=== PATIENT | female | born 2000 | race Caucasian/White ===

== ENCOUNTER 2024-01-17 20:50 | Emergency (ER) | payer SELFPAY ==
[2024-01-17] VITALS (15 sets, daily range): BP systolic 102–130; BP diastolic 75–87; PULSE 14–126; RESP 14–28; TEMP 36.7; O2SAT 94–100
--- NOTE | ~2024-01-17 | XR_ITS ---
EXAMINATION: XR chest 1V portable DATE: 01/17/2024 21:15 INDICATION: Shortness of breath. TECHNIQUE: A single frontal view of the chest was obtained. COMPARISON: None. FINDINGS: There is no pneumonia, pleural effusion, or pneumothorax. The heart size is normal. IMPRESSION: 1. No acute cardiopulmonary disease. Reviewed, dictated and finalized at location E.
--- NOTE | 2024-01-17 20:52 | ECG_ITS ---
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 Measurements Intervals [place] Rate: 87 P: 18 IA: 155 QRS: 47 QRSD: 90 T: 20 QT: 347 QTc: 419 Interpretive Statements SINUS RHYTHM WITH SINUS ARRHYTHMIA No previous ECG available for comparison Electronically Signed On 01-18-2024 12:06:33 CDT by Angela Tran M.D.
[2024-01-17 21:05] LABS: Basophils Percent Auto 0.4 % (0.2-1.2); Eosinophils Absolute Auto 0.1 K/mm3 (0-0.3); Eosinophils Percent Auto 0.8 % (0-4.4); Hematocrit 41.9 % (37.0-47.0); Hemoglobin 12.9 g/dL (12.0-15.0); Immature Granulocyte Absolute 0.05 K/mm3 (0.00-0.031); Immature Granulocyte Percent A 0.5 % (0-0.5); Lymphocytes Absolute Auto 2.38 K/mm3 (0.9-3.2); Lymphocytes Percent Auto 21.6 % (18.3-44.2); Mean Corpuscular HGB Conc 30.8 g/dl (32-36); Mean Corpuscular Hemoglobin 24.6 pg (26-34); Mean Platelet Volume 11.3 fl (7.4-10.4); Monocytes Absolute Auto 0.8 K/mm3 (0.1-0.6); Monocytes Percent Auto 7.4 % (2.6-8.5); Neutrophils Absolute Auto 7.7 K/mm3 (1.3-6.7); Neutrophils Percent Auto 69.3 % (45.5-73.1); Platelet Count Result 359 k/mm3 (150-375); Red Blood Count 5.24 M/mm3 (4.2-5.4); Red Cell Distribution Width 15.4 % (11.5-14.5)
[2024-01-17] MEDS: SODIUM CHLORIDE 0.9% IV 1,000 ML 999 ML IV CONT (21:15)
[2024-01-17] MEDS: methylPREDNISolone SOD SUCC 125 MG VIAL IV PUSH (21:15)
[2024-01-17] MEDS: PROCHLORPERAZINE EDISYLATE 10 MG/2 ML VIAL IV PUSH (21:15)
[2024-01-17] MEDS: KETOROLAC 30 MG/ML VIAL (*BKC) IV PUSH (21:16)
[2024-01-17] MEDS: diphenhydrAMINE HCl INJ 50 MG/ML VIAL 25 MG IV PUSH (21:16)
[2024-01-17 21:17] LABS: Alanine Aminotransferase 34 U/L (6-35); Albumin Level 4.6 g/dL (3.5-5.1); Alkaline Phosphatase 89 U/L (38-126); Anion Gap 8 mmol/L (4-12); Aspartate Amino Transferase 31 U/L (14-36); Bilirubin,Total 0.4 mg/dL (0.2-1.3); Blood Urea Nitrogen 11 mg/dL (7-17); Carbon Dioxide 29 mmol/L (22-30); Chloride 104 mmol/L (98-107); Estimated CRCL calculation 117 ml/min; Estimated Glomerular Filt Rate > 60; Glucose 91 mg/dL (65-110); Potassium 3.6 mmol/L (3.4-5.0); Sodium 141 mmol/L (137-145)
[2024-01-17 21:28] LABS: D Dimer < 0.27 ug/mL (<0.48)
[2024-01-17 21:34] LABS: Lactic Acid Reflex 1.1 mmol/L (0.7-2.0)
[2024-01-17] MEDS: IPRATROPIUM 0.5 MG/ALBUTEROL SULFATE 2.5 MG AMPUL.NEB 3 ML INHALATION (21:35)
[2024-01-17 21:55] LABS: NT Pro B Type Natriuretic Pept < 20 pg/mL (19.9-100); Troponin I < 0.012 ng/mL (0.000-0.034)
--- NOTE | 2024-01-17 22:02 | PC.NURSE ---
Patient calls out to state she feels better and is ready to go home. ERP notified.
--- NOTE | 2024-01-17 22:28 | ED.GENADULT ---
HPI - General Adult General Chief complaint: Shortness of Breath/Dyspnea Stated complaint: shortness of breath Time Seen by Provider: 01/17/24 20:56 History of Present Illness HPI narrative: patient is a 23-year-old female presents emergency department chief complaint of shortness of breath chest pain and headache. The patient states around 7:30 p.m. she started having a sharp type pain in her chest reports that hurts whenever she takes a deep breath and reports he felt short of breath. Patient also reports that she had headache that developed as similar to when she has had a migraine in past. Patient reports that pain is not improved by anything and reports he also felt nauseated. Patient denies focal neurological deficit Related Data Allergies Allergy/AdvReac Type Severity Reaction Status Date / Time No Known Allergies Allergy Verified 01/17/24 21:09 Review of Systems Review of Systems: A 10 system review of systems was completed on the patient and is negative except for what is stated in the HPI. Nursing and ancillary documentation was reviewed. Exam Narrative: GENERAL: Well-appearing, well-nourished, and in no acute distress. HEAD: Normocephalic, atraumatic. EYES: PERRLA and EOMI. ENT: Nares clear, no rhinorrhea or epistaxis. Mucous membranes moist. NECK: Supple. CHEST: Clear to auscultation. No respiratory distress. chest wall is tender to palpation along the sternal border on both sides HEART: Regular rate and rhythm. No murmur heard. Normal peripheral pulses. ABDOMEN: Soft, nontender, nondistended, normal active bowel sounds. EXTREMITIES: Normal range of motion. No edema. SKIN: Warm, dry, no rash. NEURO: No focal deficits. Alert and oriented x3. PSYCH: Normal mood and affect. Course Vital Signs Vital signs: Vital Signs Temperature 36.7 C 01/17/24 20:56 Pulse Rate 81 01/17/24 20:56 Respiratory Rate 17 01/17/24 20:56 Blood Pressure 124/81 01/17/24 20:56 Pulse Oximetry 100 01/17/24 20:56 Oxygen Delivery Room Air 01/17/24 20:56 Temperature 36.7 C 01/17/24 20:56 Pulse Rate 106 H 01/17/24 21:46 Respiratory Rate 21 H 01/17/24 21:46 Blood Pressure 124/81 01/17/24 20:56 Pulse Oximetry 100 01/17/24 21:07 Oxygen Delivery Room Air 01/17/24 21:07 Medical Decision Making MDM Narrative Medical decision making narrative: differential diagnosis includes migraine headache, ACS, chest wall pain, pleuritic pain, pulmonary embolism the patient is low risk as she is not tachycardic not hypoxic and not tachypneic. D-dimer was obtained that was negative EKG showed no acute ischemic changes laboratory studies were obtained that showed a white count 11.0 electrolytes are within normal limits troponin was negative BNP was negative chest x-ray showed no evidence of pneumothorax no evidence of wide mediastinum no evidence of pneumonia patient was treated with Toradol steroids antiemetic and Benadryl as well as fluids. The patient's pain was improved patient's headache has been improved and patient is currently feeling much better at this time. Vital Signs Vital Signs: Vital Signs Temperature 36.7 C 01/17/24 20:56 Pulse Rate 81 01/17/24 20:56 Respiratory Rate 17 01/17/24 20:56 Blood Pressure 124/81 01/17/24 20:56 Pulse Oximetry 100 01/17/24 20:56 Oxygen Delivery Room Air 01/17/24 20:56 Temperature 36.7 C 01/17/24 20:56 Pulse Rate 106 H 01/17/24 21:46 Respiratory Rate 21 H 01/17/24 21:46 Blood Pressure 124/81 01/17/24 20:56 Pulse Oximetry 100 01/17/24 21:07 Oxygen Delivery Room Air 01/17/24 21:07 Lab Data 01/17/24 21:01 01/17/24 21:01 Labs: Lab Results 01/17/24 01/17/24 01/17/24 Range/Units 21:00 21:01 21:16 WBC 11.0 H (4.5-10.0) K/mm3 RBC 5.24 (4.2-5.4) M/mm3 Hgb 12.9 (12.0-15.0) g/dL Hct 41.9 (37.0-47.0) % MCV 80.0 (80-100) fl MCH 24.6
== END 2024-01-17 22:40 | disposition home or self-care (01) ==
PROVIDERS: Emergency Provider Emergency Medicine
DX: R51.9 Headache, unspecified (principal); R07.89 Other chest pain
CPT/HCPCS: 36415; 71045; 80053; 83605; 83880; 84484; 85025; 85380; 93005; 94640; 96361; 96374; 96375; 99284; J0780; J1200; J1885; J2919; J7030

== ENCOUNTER 2024-03-19 17:30 | Emergency (ER) | payer SELFPAY ==
--- NOTE | ~2024-03-19 | CT_ITS ---
EXAMINATION: CTA chest PE abdomen pel DATE: 03/19/2024 23:57 INDICATION: Left flank pain, chest pain TECHNIQUE: Computed tomography (CT) pulmonary angiogram of the chest was performed with 100 mL Omnipa que-350 intravenous contrast. Additional 3D reconstructions utilizing coronal maximum intensity proje ction (MIP) were performed. CT of the abdomen and pelvis was performed with intravenous contrast util izing the same contrast bolus following a short delay. Automated exposure control and iterative recon struction technique were employed. The dose-length product was 1401.29 mGy-cm. COMPARISON: None FINDINGS: Chest: No pulmonary embolism. No pneumonia, pulmonary edema, pleural effusion or pneumothorax. Heart size is normal. No pericardial effusion. Thoracic aorta is normal in caliber with no dissection. No patholog ically enlarged thoracic lymphadenopathy. Bones are unremarkable. Abdomen/pelvis: Liver, gallbladder, spleen, pancreas, bilateral adrenal glands and kidneys are normal. Normal variant retroaortic left renal veins. Bowels including the appendix are normal. Bladder, anteverted uterus a nd bilateral adnexa are normal. No free intraperitoneal gas or fluid. No pathologically enlarged abdo kate or pelvic lymphadenopathy. Bones are unremarkable. IMPRESSION: 1. No pulmonary embolism or other acute cardiopulmonary disease. 2. No acute intra-abdominal/pelvic process. Reviewed, dictated and finalized at location A.
[2024-03-19 18:09] VITALS: BP 120/75; PULSE 97; RESP 18; TEMP 36.7; O2SAT 100
--- NOTE | 2024-03-19 18:25 | ED.GENADULT ---
HPI - General Adult General Chief complaint: Back Pain/Injury <Bryce Sanon APRN - Last Filed: 03/19/24 18:26> Stated complaint: Left Flank/ Back Pain <Bryce Sanon APRN - Last Filed: 03/19/24 18:26> Time Seen by Provider: 03/19/24 18:25 <Bryce Sanon APRN - Last Filed: 03/19/24 18:26> patient presents with left flank pain since yesterday. patient states it wraps to her left abdomen. patient denies hx of kidney stones or urinary symptoms. no other complaints. PE: A&OX3, BS non-labor, + left CVA tenderness, no abdominal tenderness <Bryce Sanon APRN - Last Filed: 03/19/24 18:26> History of Present Illness HPI narrative: patient 23-year-old female who presents emergency department with chief complaint of flank and chest pain. The patient reports that since yesterday she has been having pain in the left flank area reports radiates around to her left abdomen reports now he is up in her chest patient states the pain has gotten worse and now is and 9.75/10 patient reports that the pain is not improved by anything reports it is worsened by inspiration and movement. <Gerardo Hernandez MD - Last Filed: 03/20/24 02:24> Related Data Allergies/adverse reactions: Allergies Allergy/AdvReac Type Severity Reaction Status Date / Time No Known Allergies Allergy Verified 03/19/24 18:11 <Bryce Sanon APRN - Last Filed: 03/19/24 18:26> Review of Systems Review of Systems: A 10 system review of systems was completed on the patient and is negative except for what is stated in the HPI. Nursing and ancillary documentation was reviewed. <Gerardo Hernandez MD - Last Filed: 03/20/24 02:24> Exam Narrative: GENERAL: Well-appearing, well-nourished, and in no acute distress. HEAD: Normocephalic, atraumatic. EYES: PERRLA and EOMI. ENT: Nares clear, no rhinorrhea or epistaxis. Mucous membranes moist. NECK: Supple. CHEST: Clear to auscultation. No respiratory distress. Chest wall is tender to palpation in the left sternal border HEART: Regular rate and rhythm. No murmur heard. Normal peripheral pulses. ABDOMEN: Soft, nontender, nondistended, normal active bowel sounds. EXTREMITIES: Normal range of motion. No edema. SKIN: Warm, dry, no rash. NEURO: No focal deficits. Alert and oriented x3. PSYCH: Normal mood and affect. <Gerardo Hernandez MD - Last Filed: 03/20/24 02:24> Course Vital Signs Vital signs: Vital Signs Temperature 36.7 C 03/19/24 18:09 Pulse Rate 97 03/19/24 18:09 Respiratory Rate 18 03/19/24 18:09 Blood Pressure 120/75 03/19/24 18:09 Pulse Oximetry 100 03/19/24 18:09 Oxygen Delivery Room Air 03/19/24 18:09 Temperature 36.8 C 03/19/24 21:43 Pulse Rate 93 03/19/24 21:43 Respiratory Rate 18 03/19/24 21:43 Blood Pressure 133/84 03/19/24 21:43 Pulse Oximetry 100 03/19/24 21:43 Oxygen Delivery Room Air 03/19/24 18:09 <Bryce Sanon APRN - Last Filed: 03/19/24 18:26> Vital Signs Temperature 36.7 C 03/19/24 18:09 Pulse Rate 97 03/19/24 18:09 Respiratory Rate 18 03/19/24 18:09 Blood Pressure 120/75 03/19/24 18:09 Pulse Oximetry 100 03/19/24 18:09 Oxygen Delivery Room Air 03/19/24 18:09 Temperature 36.8 C 03/19/24 21:43 Pulse Rate 93 03/19/24 21:43 Respiratory Rate 18 03/19/24 21:43 Blood Pressure 133/84 03/19/24 21:43 Pulse Oximetry 100 03/19/24 21:43 Oxygen Delivery Room Air 03/19/24 18:09 <Gerardo Hernandez MD - Last Filed: 03/20/24 02:24> Medical Decision Making MDM Narrative Medical decision making narrative: differential diagnosis include intra-abdominal infection, pulmonary embolism, ACS, pneumothorax laboratory studies were obtained the patient showed a CBC with white count of 15.2 electrolytes are within normal limits troponin was 0 hour in 3 hour urinalysis showed no evidence UTI test was negative CT
[2024-03-19 21:43] VITALS: BP 133/84; PULSE 93; RESP 18; TEMP 36.8; O2SAT 100
[2024-03-19 23:04] LABS: Basophils Absolute Auto 0.1 K/mm3 (0.0-0.1); Basophils Percent Auto 0.3 % (0.2-1.2); Eosinophils Absolute Auto 0.1 K/mm3 (0-0.3); Eosinophils Percent Auto 0.6 % (0-4.4); Hemoglobin 12.7 g/dL (12.0-15.0); Immature Granulocyte Absolute 0.05 K/mm3 (0.00-0.031); Immature Granulocyte Percent A 0.3 % (0-0.5); Lymphocytes Absolute Auto 2.94 K/mm3 (0.9-3.2); Lymphocytes Percent Auto 19.3 % (18.3-44.2); Mean Corpuscular Volume 80.7 fl (80-100); Mean Platelet Volume 11.6 fl (7.4-10.4); Monocytes Absolute Auto 0.9 K/mm3 (0.1-0.6); Neutrophils Absolute Auto 11.2 K/mm3 (1.3-6.7); Neutrophils Percent Auto 73.5 % (45.5-73.1); Platelet Count Result 318 k/mm3 (150-375); Red Blood Count 5.08 M/mm3 (4.2-5.4); Red Cell Distribution Width 15.4 % (11.5-14.5); White Blood Count 15.2 K/mm3 (4.5-10.0)
[2024-03-19 23:09] LABS: Pregnancy On Board Control Positive; Urine Pregnancy Test Negative
[2024-03-19 23:10] LABS: Add Urine Microscopic? YES; Appearance Urine Clear (Clear); Bacteria Urine Rare /hpf; Bilirubin Urine Negative (Negative); Blood Urine 2+ (Negative); Color Urine Yellow (Yellow); Glucose Urine UA Negative (Negative); Ketones Urine Negative (Negative); Leukocyte Esterase Ur Negative LEU/UL (Negative); Nitrate Urine Negative (Negative); Non Pathogenic Casts 0-2; Protein Urine Negative (Negative); RBC Urine 0-2 /hpf (0-2); Specific Grav Ur 1.024 (1.001-1.035); Squamous Epithelial Cell Urine Occasional /hpf (Few); Urobilinogen Urine 0.2 mg/dL (<2.0); WBC Urine 0-5 /hpf (0-3)
[2024-03-19 23:16] LABS: Alanine Aminotransferase 30 U/L (6-35); Albumin Level 4.4 g/dL (3.5-5.1); Alkaline Phosphatase 79 U/L (38-126); Anion Gap 12 mmol/L (4-12); Aspartate Amino Transferase 25 U/L (14-36); Bilirubin,Total 0.5 mg/dL (0.2-1.3); Blood Urea Nitrogen 11 mg/dL (7-17); Calcium 8.9 mg/dL (8.4-10.2); Carbon Dioxide 25 mmol/L (22-30); Chloride 102 mmol/L (98-107); Estimated CRCL calculation 141 ml/min; Estimated Glomerular Filt Rate > 60; Glucose 85 mg/dL (65-110); Potassium 3.5 mmol/L (3.4-5.0); Sodium 139 mmol/L (137-145)
[2024-03-19] MEDS: SODIUM CHLORIDE 0.9% IV 1,000 ML 999 ML IV CONT (23:45)
[2024-03-19] MEDS: ONDANSETRON INJ 4 MG/2 ML VIAL IV PUSH (23:46)
[2024-03-19] MEDS: MORPHINE SULFATE (*CRX) 4 MG/ML INJ IV PUSH (23:46)
[2024-03-20 01:56] LABS: Troponin I < 0.012 ng/mL (0.000-0.034)
[2024-03-20 01:57] LABS: Troponin I < 0.012 ng/mL (0.000-0.034)
[2024-03-20 03:52] VITALS: BP 92/62; PULSE 76; RESP 19; O2SAT 98
== END 2024-03-20 03:53 | disposition home or self-care (01) ==
PROVIDERS: Nurse Practitioner Family; Emergency Provider Emergency Medicine
DX: R07.9 Chest pain, unspecified (principal); R10.12 Left upper quadrant pain
CPT/HCPCS: 36415; 71275; 74177; 80053; 81001; 81025; 84484; 85025; 96361; 96374; 96375; 99284; J2270; J2405; J7030; Q9967

== ENCOUNTER 2024-03-21 18:03 | Emergency (ER) | payer SELFPAY ==
--- NOTE | ~2024-03-21 | XR_ITS ---
XR chest 2V DATE: 03/21/2024 21:31 INDICATION: Chest pain, dizziness, nausea TECHNIQUE: PA and lateral views COMPARISON: 03/19/2024 CTA chest abdomen pelvis FINDINGS: Normal heart size. No hilar or mediastinal enlargement. No pulmonary infiltrate or consolid ation, pleural effusion or pulmonary vascular congestion or pneumothorax is detected. Included skeletal structures are unremarkable. IMPRESSION: Negative Reviewed, dictated and finalized at location J. IMPRESSION: Negative
--- NOTE | ~2024-03-21 | CT_ITS ---
CT of the Abdomen and Pelvis: Indication: Abdominal pain Technique: 2.5 mm axial scans were obtained through the abdomen and pelvis following intravenous adm inistration of 100 cc of Omnipaque 350. Dose reduction technique was used on this scan by utilizing a utomated exposure control and iterative reconstruction technique. The dose-length product (DLP) was 1 127.25 mGy-cm. COMPARISON: 03/19/2024 Findings: Scans through the lung bases are unremarkable. The liver, spleen, pancreas, gallbladder, adrenals and kidneys are within normal limits. No evidence of aortic aneurysm. No lymphadenopathy. No bowel obstruction or bowel wall thickening. There is no evidence to suggest acute appendicitis. Images through the pelvis were performed. Urinary bladder unremarkable. No pelvic mass seen. No ascit es. Impression: No significant abnormalities seen. Reviewed, dictated and finalized at [facility]. Impression: No significant abnormalities seen.
[2024-03-21 18:03] VITALS: BP 135/73; PULSE 92; RESP 20; TEMP 36.9; O2SAT 99
[2024-03-21 19:59] VITALS: TEMP 37.2
--- NOTE | 2024-03-21 21:16 | ECG_ITS ---
Test Date: 2024-03-21 21:57:54 Measurements Intervals [place] Rate: 67 P: 11 AR: 130 QRS: 50 QRSD: 93 T: 36 QT: 396 QTc: 420 Interpretive Statements SINUS RHYTHM NORMAL ELECTROCARDIOGRAM Compared to ECG 01/17/2024 21:05:27 Sinus arrhythmia no longer present Electronically Signed On 03-22-2024 15:32:21 CDT by Preston Childs M.D.
--- NOTE | 2024-03-21 21:19 | ED.ABDPAIN ---
HPI - Abdominal Pain General Chief Complaint: Abdominal Pain Stated Complaint: abdominal pain Time Seen by Provider: 03/21/24 20:49 Source: patient Mode of arrival: ambulatory Limitations: no limitations History of Present Illness HPI narrative: This is a 23-year-old female that presents to the emergency department for abdominal pain. Reports sharp, left-sided abdominal pain with nausea. It has been fairly constant over the last couple of days. She is evaluated in the ER for this 2 days ago without a certain cause found. She has had worsening pain which prompted her to be seen again. The pain is on the left side of her abdomen and also in her lower abdomen. The pain radiates to her back. She also has had some intermittent chest pressure. Denies fever, cough, shortness of breath, vomiting, diarrhea, dysuria or hematuria. Related Data Allergies Allergy/AdvReac Type Severity Reaction Status Date / Time No Known Allergies Allergy Verified 03/19/24 18:11 Review of Systems Review of Systems: CONSTITUTIONAL: Denies fever CARDIOVASCULAR: Reports chest pain RESPIRATORY: Denies dyspnea. GASTROINTESTINAL: Reports abdominal pain, nausea. Denies vomiting, or diarrhea. GENITOURINARY: Denies dysuria or hematuria. All systems reviewed & are unremarkable except as noted in HPI and below PMFSH Past Medical History Medical History (Updated 03/22/24 @ 01:58 by Edna Merrill PA-C) History of anxiety History of depression Social History Social History (Updated 03/21/24 @ 21:22 by Edna Merrill PA-C) Smoking status: Never smoker Exam Narrative: GENERAL: Well-appearing, well-nourished, and in no acute distress. HEAD: Normocephalic, atraumatic. EYES: EOMI. CHEST: Clear to auscultation. No respiratory distress. No wheezes rales or rhonchi HEART: Regular rate and rhythm. No murmur heard. Normal peripheral pulses. ABDOMEN: Soft, nondistended, normal active bowel sounds. Tender to palpation throughout the left side of the abdomen, without guarding EXTREMITIES: Normal range of motion. No edema. SKIN: Warm, dry, no rash. NEURO: No focal deficits. Alert and oriented x3. PSYCH: Normal mood and affect Course Course Emergency Course: Patient updated on her workup and agrees with plan of care Vital Signs Vital signs: Vital Signs Temperature 98.4 F 03/21/24 18:03 Pulse Rate 92 03/21/24 18:03 Respiratory Rate 20 03/21/24 18:03 Blood Pressure 135/73 03/21/24 18:03 Pulse Oximetry 99 03/21/24 18:03 Oxygen Delivery Room Air 03/21/24 18:03 Temperature 98.9 F 03/21/24 19:59 Pulse Rate 77 03/22/24 01:32 Respiratory Rate 14 03/22/24 01:32 Blood Pressure 126/65 03/22/24 01:32 Pulse Oximetry 100 03/22/24 01:32 Oxygen Delivery Room Air 03/21/24 22:59 MDM - Abdominal Pain MDM Narrative Medical decision making narrative: Patient presents to the emergency department for left-sided abdominal pain. Ongoing over the last several days. Associated with nausea. Patient also reporting pain radiating to her back and chest. Patient had extensive workup 2 days prior including a CTA of her chest. Endorsing worsening abdominal pain tonight. She is afebrile and nontoxic appearing. Her vitals are stable. CBC with mild leukocytosis to 10.4. Metabolic panel without concerning findings. Lipase is normal. Urine with possible evidence of infection. This will be sent for culture. CT abdomen and pelvis without acute findings. Chest x-ray without acute cardiopulmonary abnormality. EKG without concerning changes and baseline troponin is negative. Patient was updated on her workup and agrees with plan of care. Will be continued on oral antibiotics for possible UTI. She was given warnings to return to the ER Differential Diagnosis Differential diagnosis: Likely calculus of kidney, constipation, diverticulitis, pancreatitis and other (UTI) Lab Data Attestation: I reviewed the patient's lab resu
[2024-03-21 21:27] LABS: Basophils Percent Auto 0.3 % (0.2-1.2); Eosinophils Absolute Auto 0.1 K/mm3 (0-0.3); Eosinophils Percent Auto 0.8 % (0-4.4); Hematocrit 42.6 % (37.0-47.0); Hemoglobin 12.9 g/dL (12.0-15.0); Immature Granulocyte Absolute 0.03 K/mm3 (0.00-0.031); Immature Granulocyte Percent A 0.3 % (0-0.5); Lymphocytes Absolute Auto 2.23 K/mm3 (0.9-3.2); Lymphocytes Percent Auto 21.4 % (18.3-44.2); Mean Corpuscular HGB Conc 30.3 g/dl (32-36); Mean Corpuscular Hemoglobin 24.7 pg (26-34); Mean Corpuscular Volume 81.5 fl (80-100); Mean Platelet Volume 12.4 fl (7.4-10.4); Monocytes Absolute Auto 0.8 K/mm3 (0.1-0.6); Neutrophils Absolute Auto 7.2 K/mm3 (1.3-6.7); Neutrophils Percent Auto 69.2 % (45.5-73.1); Platelet Count Result 328 k/mm3 (150-375); Red Blood Count 5.23 M/mm3 (4.2-5.4); Red Cell Distribution Width 15.5 % (11.5-14.5); White Blood Count 10.4 K/mm3 (4.5-10.0)
[2024-03-21] MEDS: SODIUM CHLORIDE 0.9% IV 1,000 ML 999 ML IV CONT ×2 (21:43→23:09)
[2024-03-21] MEDS: ONDANSETRON INJ 4 MG/2 ML VIAL IV PUSH (21:44)
[2024-03-21] MEDS: MORPHINE SULFATE (*CRX) 4 MG/ML INJ IV PUSH (21:44)
[2024-03-21] MEDS: PANTOPRAZOLE SODIUM IV 40 MG VIAL IV PUSH (21:44)
[2024-03-21 21:46] LABS: Alanine Aminotransferase 26 U/L (6-35); Albumin Level 4.4 g/dL (3.5-5.1); Alkaline Phosphatase 76 U/L (38-126); Anion Gap 13 mmol/L (4-12); Aspartate Amino Transferase 26 U/L (14-36); Bilirubin,Total 0.2 mg/dL (0.2-1.3); Blood Urea Nitrogen 10 mg/dL (7-17); Calcium 9.5 mg/dL (8.4-10.2); Carbon Dioxide 27 mmol/L (22-30); Chloride 101 mmol/L (98-107); Estimated CRCL calculation 140 ml/min; Estimated Glomerular Filt Rate > 60; Glucose 75 mg/dL (65-110); Lipase 111 U/L (23-300); Potassium 4.2 mmol/L (3.4-5.0); Sodium 141 mmol/L (137-145)
[2024-03-21 21:47] LABS: Add Urine Microscopic? YES; Appearance Urine Cloudy (Clear); Bacteria Urine Rare /hpf; Bilirubin Urine Negative (Negative); Blood Urine 3+ (Negative); Color Urine Yellow (Yellow); Glucose Urine UA Negative (Negative); Ketones Urine Trace mg/dL (Negative); Leukocyte Esterase Ur Trace LEU/UL (Negative); Need Manual Microscopic Reviewed; Nitrate Urine Negative (Negative); Non Pathogenic Casts 0-2; Protein Urine Trace mg/dL (Negative); RBC Urine 51-100 /hpf (0-2); Specific Grav Ur 1.024 (1.001-1.035); Squamous Epithelial Cell Urine Moderate /hpf (Few)
[2024-03-21 21:53] LABS: Pregnancy On Board Control Positive; Urine Pregnancy Test Negative
[2024-03-21 22:21] LABS: Troponin I < 0.012 ng/mL (0.000-0.034)
[2024-03-21 22:59] VITALS: O2SAT 100
[2024-03-22 01:32] VITALS: BP 126/65; PULSE 77; RESP 14; O2SAT 100
[2024-03-22 02:24] VITALS: BP 139/85; PULSE 71; RESP 16; O2SAT 98
== END 2024-03-22 02:51 | disposition home or self-care (01) ==
PROVIDERS: Emergency Provider Physician Assistant
DX: N39.0 Urinary tract infection, site not specified (principal); R10.12 Left upper quadrant pain
CPT/HCPCS: 36415; 71046; 74177; 80053; 81001; 81025; 83690; 84484; 85025; 87086; 93005; 96361; 96365; 96374; 96375; 99284; J0696; J2270; J2405; J2470; J7030; Q9967

== ENCOUNTER 2024-04-07 22:16 | Emergency (ER) | payer MEDICAID, SELFPAY ==
--- NOTE | ~2024-04-07 | CT_ITS ---
EXAMINATION: CT abdomen pelvis w con DATE: 04/08/2024 02:16 INDICATION: Generalized abdominal pain. TECHNIQUE: Computed tomography (CT) of the abdomen and pelvis was performed with 100 mL Omnipaque 350 intravenous contrast. Automated exposure control and iterative reconstruction technique were employe d. The dose-length product was 723.67 mGy-cm. COMPARISON: CT abdomen and pelvis 03/21/2024 FINDINGS: The visualized portions of the lung bases demonstrate mild atelectasis. No pleural effusion . The heart size is normal. No pericardial effusion. The liver, gallbladder, spleen, pancreas, adrena l glands, and kidneys are normal. There are no dilated loops of bowel. The appendix is normal. There are no pathologically enlarged lymph nodes. There is no free intraperitoneal fluid. The bones are unr emarkable. IMPRESSION: 1. No etiology for the patient's symptoms. Reviewed, dictated and finalized at location A.
[2024-04-07 22:18] VITALS: BP 141/90; PULSE 105; RESP 20; TEMP 36.7; O2SAT 95
--- NOTE | 2024-04-08 01:02 | ED.ABDPAIN ---
HPI - Abdominal Pain General Chief Complaint: Abdominal Pain <Velia Arrington PA-C - Last Filed: 04/08/24 03:11> Stated Complaint: ABD PAIN XWKS <Velia Arrington PA-C - Last Filed: 04/08/24 03:11> Time Seen by Provider: 04/08/24 00:38 <Velia Arrington PA-C - Last Filed: 04/08/24 03:11> History of Present Illness HPI narrative: 23-year-old female history of anxiety and depression presents to emergency department for abdominal pain for several weeks. Patient states the pain is located on her left side of her abdomen and at times radiates to her left flank into the right side of her abdomen. It is going on for several weeks and states it seems to be getting worse today. She was seen in our emergency department on 03/19 and again on 03/21 for the same pain. She had largely negative workups both times except for a possible UTI on 03/21/2024 for which she was started on cefdinir. She has had 2- CT scans in our emergency department during those visits. States in between this visit she went to [facility] ER for her pain and again had a negative workup. She has been following with her primary care provider in OBGYN who has been working her up outpatient without any significant findings. States she saw her Ob 1 week ago and was tested for STDs which were all negative. She has an appointment again in a few hours today with her OB for follow-up. She is taking cefdinir for UTI and is also being treated for yeast vaginitis currently. She is reporting some dysuria. denies concern for STDs. Denies vaginal discharge, bleeding, vomiting, diarrhea. Last bowel movement was today and normal. She is endorsing some nausea. <Velia Arrington PA-C - Last Filed: 04/08/24 03:11> Related Data Allergies/Adverse Reactions: Allergies Allergy/AdvReac Type Severity Reaction Status Date / Time No Known Allergies Allergy Verified 03/19/24 18:11 <Velia Arrington PA-C - Last Filed: 04/08/24 03:11> Review of Systems Review of Systems: All systems reviewed & are unremarkable except as noted in HPI and below <Velia Arrington PA-C - Last Filed: 04/08/24 03:11> [facility] Past Medical History Medical History: Medical History History of anxiety History of depression <Velia Arrington PA-C - Last Filed: 04/08/24 03:11> Social History Social History: Social History Smoking status: Never smoker <Velia Arrington PA-C - Last Filed: 04/08/24 03:11> Exam Narrative: GENERAL: Well-appearing, well-nourished, and in no acute distress. HEAD: Normocephalic, atraumatic. ENT: Nares clear, no rhinorrhea or epistaxis. Mucous membranes moist. NECK: Supple. CHEST: Clear to auscultation. No respiratory distress. HEART: Regular rate and rhythm. No murmur heard. Normal peripheral pulses. ABDOMEN: normoactive bowel sounds. Abdomen soft with minimal tenderness throughout all quadrants. No rebound, guarding or rigidity. No CVA tenderness. EXTREMITIES: Normal range of motion. No edema. SKIN: Warm, dry, no rash. NEURO: No focal deficits. 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 I performed all aspects of the MDM as documented <Gerardo Hernandez MD - Last Filed: 04/08/24 04:11> Vital Signs Vital signs: Vital Signs Temperature 36.7 C 04/07/24 22:18 Pulse Rate 105 H 04/07/24 22:18 Respiratory Rate 20 04/07/24 22:18 Blood Pressure 141/90 H 04/07/24 22:18 Pulse Oximetry 95 04/07/24 22:18 Oxygen Delivery Room Air 04/07/24 22:18 Temperature 36.7 C 04/07/24 22:18 Pulse Rate 99 04/08/24 03:49 Respiratory Rate 18 04/08/24 03:49 Blood Pressure 131/87 04/08/24 03:49 Pulse Oximetry 97 04/08/24 03:49 Oxygen Delivery Room
[2024-04-08 01:26] LABS: BEDSIDEPREGUCG Negative; Basophils Percent Auto 0.3 % (0.2-1.2); Eosinophils Absolute Auto 0.1 K/mm3 (0-0.3); Eosinophils Percent Auto 0.6 % (0-4.4); Hematocrit 43.7 % (37.0-47.0); Hemoglobin 13.5 g/dL (12.0-15.0); Immature Granulocyte Absolute 0.04 K/mm3 (0.00-0.031); Immature Granulocyte Percent A 0.3 % (0-0.5); Lymphocytes Absolute Auto 2.31 K/mm3 (0.9-3.2); Lymphocytes Percent Auto 18.8 % (18.3-44.2); Mean Corpuscular HGB Conc 30.9 g/dl (32-36); Mean Corpuscular Volume 80.8 fl (80-100); Mean Platelet Volume 11.9 fl (7.4-10.4); Monocytes Absolute Auto 0.9 K/mm3 (0.1-0.6); Monocytes Percent Auto 6.9 % (2.6-8.5); Neutrophils Percent Auto 73.1 % (45.5-73.1); Platelet Count Result 306 k/mm3 (150-375); Red Blood Count 5.41 M/mm3 (4.2-5.4); Red Cell Distribution Width 15.7 % (11.5-14.5); White Blood Count 12.3 K/mm3 (4.5-10.0)
[2024-04-08 01:32] LABS: Add Urine Microscopic? YES; Appearance Urine Clear (Clear); Bacteria Urine None Seen /hpf; Bilirubin Urine Negative (Negative); Blood Urine Negative (Negative); Color Urine Dark Yellow (Yellow); Glucose Urine UA Negative (Negative); Ketones Urine Trace mg/dL (Negative); Leukocyte Esterase Ur Trace LEU/UL (Negative); Nitrate Urine Negative (Negative); Non Pathogenic Casts 0-2; Protein Urine Trace mg/dL (Negative); RBC Urine 0-2 /hpf (0-2); Specific Grav Ur 1.033 (1.001-1.035); Squamous Epithelial Cell Urine Few /hpf (Few); WBC Urine 0-5 /hpf (0-3); pH Urine 6.5 (5.0-9.0)
[2024-04-08] MEDS: ONDANSETRON INJ 4 MG/2 ML VIAL IV PUSH (01:35)
[2024-04-08] MEDS: KETOROLAC 15 MG/ML VIAL (*BKC) IV PUSH (01:35)
[2024-04-08] MEDS: FAMOTIDINE 20 MG/2 ML VIAL IV PUSH (01:35)
[2024-04-08 01:36] LABS: Alanine Aminotransferase 42 U/L (6-35); Albumin Level 4.5 g/dL (3.5-5.1); Alkaline Phosphatase 92 U/L (38-126); Anion Gap 11 mmol/L (4-12); Aspartate Amino Transferase 45 U/L (14-36); Bilirubin,Total 0.3 mg/dL (0.2-1.3); Blood Urea Nitrogen 17 mg/dL (7-17); Calcium 9.4 mg/dL (8.4-10.2); Carbon Dioxide 27 mmol/L (22-30); Chloride 103 mmol/L (98-107); Estimated CRCL calculation 140 ml/min; Estimated Glomerular Filt Rate > 60; Glucose 100 mg/dL (65-110); Lipase 83 U/L (23-300); Potassium 4.2 mmol/L (3.4-5.0); Sodium 141 mmol/L (137-145)
[2024-04-08] MEDS: MORPHINE SULFATE (*CRX) 4 MG/ML INJ IV PUSH (02:17)
[2024-04-08 03:49] VITALS: BP 131/87; PULSE 99; RESP 18; O2SAT 97
== END 2024-04-08 04:28 | disposition home or self-care (01) ==
PROVIDERS: Physician Assistant; Emergency Provider Emergency Medicine
DX: R10.84 Generalized abdominal pain (principal)
CPT/HCPCS: 36415; 74177; 80053; 81001; 81025; 83690; 85025; 96374; 96375; 99284; J1885; J2270; J2405; Q9967